=== PATIENT | female | born 1980 | race Asian ===

== ENCOUNTER → 2016-11-18 16:55 | Outpatient (CLI) | payer OTHER | END | disposition home or self-care (01) | LOC: AMB 16:55 | DX: T50.995A Adverse effect of other drugs, medicaments and biological substances, initial encounter (principal) ==

== ENCOUNTER 2017-04-01 11:16 | Outpatient (CLI) | payer OTHER | END 2017-04-01 19:01 | disposition home or self-care (01) | LOC: MRI 11:16 | DX: M25.562 Pain in left knee (principal); M17.12 Unilateral primary osteoarthritis, left knee; M23.212 Derangement of anterior horn of medial meniscus due to old tear or injury, left knee ==

== ENCOUNTER 2019-05-25 10:17 | Outpatient (CLI) | payer OTHER | END 2019-05-25 23:29 | disposition home or self-care (01) | LOC: MRI 10:17 | DX: M54.5 Low back pain (principal) ==

== ENCOUNTER 2021-01-09 10:57 | Outpatient (CLI) | payer OTHER | END 2021-01-09 22:44 | disposition home or self-care (01) | LOC: MRI 10:57 | PROVIDERS: ATTEND Orthopaedic Surgery Orthopaedic Surgery of the Spine | DX: M54.5 Low back pain (principal) ==